=== PATIENT | female | born 1990 | race African-American/Black ===

== ENCOUNTER 2017-08-07 19:39 | Emergency (ER) | payer OTHER | END 2017-08-07 20:25 | disposition home or self-care (01) | LOC: BURERS 19:39 | DX: K02.9 Dental caries, unspecified (principal); F32.9 Major depressive disorder, single episode, unspecified | CPT/HCPCS: 87480; 87510; 87660; 99283 ==

== ENCOUNTER 2018-06-16 09:38 | Emergency (ER) | payer OTHER | END 2018-06-16 10:20 | disposition home or self-care (01) | LOC: BURERS 09:38 | DX: J06.9 Acute upper respiratory infection, unspecified (principal); R19.7 Diarrhea, unspecified | CPT/HCPCS: 99283 ==

== ENCOUNTER 2019-05-13 19:41 | Emergency (ER) | payer OTHER, SELFPAY ==
[2019-05-13 20:25] LABS: Bilirubin Negative (Negative); Blood, Urine Negative (Negative); Clarity Slightly Cloudy (Clear); Glucose, Urine (Dipstick) Negative (Negative); Leukocyte Negative (Negative); Nitrite Negative (Negative); Protein, Urine (Dipstick) Negative (Neg-Trace)
[2019-05-16 21:58] LABS: Chlam.trachomatis by PCR,Urine Not Detected (NotDetected)
== END 2019-05-13 20:37 | disposition home or self-care (01) ==
LOC: BURERS 19:41
DX: N76.0 Acute vaginitis (principal); B96.89 Other specified bacterial agents as the cause of diseases classified elsewhere; F32.9 Major depressive disorder, single episode, unspecified
CPT/HCPCS: 81003; 87491; 87591; 99283

== ENCOUNTER 2020-04-28 21:02 | Emergency (ER) | payer SELFPAY ==
[2020-04-28] MEDS ORDERED: Amoxicillin/Potassium Clav 875 MG TAB ONE (21:35)
[2020-04-28] MEDS ORDERED: methylPREDNISolone Acetate 40 mg/ml Vial ONE (21:35)
[2020-04-28] MEDS ORDERED: Albuterol 200 PUFF (6.7GM INHALER) ONE (21:35)
== END 2020-04-28 21:40 | disposition home or self-care (01) ==
LOC: BURERS 21:02
DX: R05 Cough (principal); R06.2 Wheezing
CPT/HCPCS: 96372; J2920